=== PATIENT | male | born 1955 | race Caucasian/White ===

== ENCOUNTER 2017-03-16 08:19 | Day surgery (SDC) | payer MEDICAID ==
[2017-03-16] MEDS ORDERED: Propofol 200 MG/20 ML SDV ONE ×2 (08:39→10:47)
[2017-03-16] MEDS ORDERED: fentaNYL 100 MCG/2 ML SDV ONE (08:39)
[2017-03-16] MEDS ORDERED: Midazolam 1 MG/ML 2 ML SDV ONE (08:39)
[2017-03-16] MEDS ORDERED: Lactated Ringers 1,000 ML IV SCH (09:00)
[2017-03-16 12:44] VITALS: BP 145/85
--- NOTE | 2017-03-17 07:34 | OR ---
DATE OF PROCEDURE: 03/16/2017 PREOPERATIVE DIAGNOSIS: Colon cancer screening. POSTOPERATIVE DIAGNOSIS: Diverticulosis, multiple colon polyps. PROCEDURE: Colonoscopy to the cecum with snare cautery polypectomy of polyp at 70 cm. Biopsy resection of polyp at 65 cm, transverse colon, biopsy resection of several polyps in the right colon. SURGEON: Demarcus Harris MD ANESTHESIA: IV anesthesia with monitored anesthesia care. INDICATION: This 61-year-old white male is referred for a colonoscopy for colon cancer screening. He says his last colonoscopic exam was done ten years ago. I counseled him for the procedure including risks and alternatives, and he gave his informed consent to proceed. DESCRIPTION OF PROCEDURE: The patient was placed in the left lateral decubitus position. IV anesthesia was administered by the Anesthesia Service. Time-out was held. A rectal exam was performed, which was unremarkable. The flexible video Olympus colonoscope was introduced through his anus, up his rectum, and out his colon all the way to the cecum. En route, we saw a few scattered left-sided diverticula. En route at 65 cm from anal verge, we saw a polyp that was removed with the biopsy forceps. A larger one at 70 cm was removed with a snare. This involved placing the snare about its base, elevating it up away from the bowel wall, and applying electrocautery as it was amputated. In the transverse colon, another polyp was seen which was removed with the biopsy forceps, and in the right colon , there were several small polyps removed with the biopsy forceps. The scope was withdrawn with no other lesions noted other than the previously mentioned diverticula. The scope was retroflexed in the rectum with the distal rectum appearing unremarkable. The scope was straightened and removed. He tolerated the procedure well. Demarcus Harris MD /[id number]
== END 2017-03-16 12:54 | disposition home or self-care (01) ==
LOC: JP.SDS 08:19
PROVIDERS: ATTEND Surgery
DX: Z12.11 Encounter for screening for malignant neoplasm of colon (principal); D12.2 Benign neoplasm of ascending colon; D12.3 Benign neoplasm of transverse colon; D12.4 Benign neoplasm of descending colon; K57.30 Diverticulosis of large intestine without perforation or abscess without bleeding; G47.33 Obstructive sleep apnea (adult) (pediatric); E78.5 Hyperlipidemia, unspecified; E66.9 Obesity, unspecified; Z79.899 Other long term (current) drug therapy; Z88.0 Allergy status to penicillin
CPT/HCPCS: 45385; 88305; J2250; J2704; J3010; J7120

== ENCOUNTER 2017-04-30 15:15 | Emergency (ER) | payer MEDICAID ==
[2017-04-30 15:31] VITALS: BP 156/83
[2017-04-30] MEDS ORDERED: Cyclobenzaprine 10 MG Tab PO ONE (15:57)
[2017-04-30] MEDS ORDERED: Ketorolac 60 MG/2 ML SDV IM ONE (15:58)
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
[2017-04-30] MEDS ORDERED: HYDROmorphone 0.5 MG/0.5 ML Syringe IM ONE (17:06)
--- NOTE | 2017-05-02 11:11 | CR ---
Lumbar Spine Min 4V HISTORY: Pain COMPARISON: CT scan 07/13/2016. FINDINGS: Gallstones overlying the gallbladder. Moderate diffuse degenerative change of the lumbar s pine with some disc space narrowing and marginal osteophyte formation. No acute fracture or subluxat ion. Impression: Moderate degenerative change no acute fracture.
== END 2017-04-30 17:29 | disposition home or self-care (01) ==
LOC: JP.ED 15:15
DX: M51.86 Other intervertebral disc disorders, lumbar region (principal); H54.7 Unspecified visual loss; E78.00 Pure hypercholesterolemia, unspecified; E66.9 Obesity, unspecified; Z88.8 Allergy status to other drugs, medicaments and biological substances; Z79.899 Other long term (current) drug therapy; H40.9 Unspecified glaucoma; Z68.42 Body mass index [BMI] 45.0-49.9, adult
CPT/HCPCS: 72110; 96372; 99284; A9270; J1885; 99283

== ENCOUNTER 2018-03-31 08:40 | Day surgery (SDC) | payer MEDICAID ==
[2018-03-31] MEDS ORDERED: Lactated Ringers 1,000 ML IV SCH (09:00)
[2018-03-31] MEDS ORDERED: Propofol 200 MG/20 ML SDV ONE (10:33)
[2018-03-31] MEDS ORDERED: fentaNYL 100 MCG/2 ML SDV ONE (10:34)
[2018-03-31 12:48] VITALS: BP 122/74
--- NOTE | 2018-03-31 12:49 | OR ---
DATE OF PROCEDURE: 03/31/2018 PREOPERATIVE DIAGNOSIS: History of tubular and tubulovillous adenomas. POSTOPERATIVE DIAGNOSES: Diverticulosis, medium-size transverse colon polyp, small colon polyp 70 cm from the anal verge, history of tubular and tubulovillous adenomas. PROCEDURES: Colonoscopy to the cecum with biopsy, then snare cautery polypectomy of transverse colon polyp, and biopsy resection of small polyp 70 cm from the anal verge. SURGEON: Demarcus Harris MD. ANESTHESIA: IV anesthesia with monitored anesthesia care. INDICATION: This 62-year-old white male is referred for a colonoscopy because of a history of both tubular and tubulovillous adenomas. His last colonoscopic exam was done about a year ago. I counseled him for the procedure including risks and alternatives, and he gave his informed consent to proceed. DESCRIPTION OF PROCEDURE: The patient was placed in the left lateral decubitus position. IV anesthesia was administered by the Anesthesia Service. Time-out was held. A rectal exam was performed, which was unremarkable. The flexible video Olympus colonoscope was introduced through his anus, up his rectum, and out his colon all the way to the cecum. En route, in the transverse colon, we saw a polyp. We initially biopsied it. It was too large to remove using this technique. We placed a snare about its base, elevated it up away from the bowel wall, and applied electrocautery as the polyp was amputated. It was aspirated through the scope and captured in a polyp trap. Once the cecum was reached, the scope was slowly withdrawn, examining the mucosa throughout. No additional mucosal abnormalities were noted until we reached 70 cm from the anal verge. Here, we saw a small polyp, which was removed with the biopsy forceps. In addition, on the left side, we saw very few scattered diverticula. There was no bleeding or inflammation associated with them. The scope was retroflexed in the rectum with the distal rectum appearing unremarkable. The scope was straightened and removed. He tolerated the procedure well. Demarcus Harris MD /[id number]
== END 2018-03-31 12:48 | disposition home or self-care (01) ==
LOC: JP.SDS 08:40
PROVIDERS: ATTEND Surgery
DX: Z12.11 Encounter for screening for malignant neoplasm of colon (principal); D12.3 Benign neoplasm of transverse colon; K63.5 Polyp of colon; K57.30 Diverticulosis of large intestine without perforation or abscess without bleeding; I10 Essential (primary) hypertension; G47.33 Obstructive sleep apnea (adult) (pediatric); Z86.010 Personal history of colon polyps; Z88.8 Allergy status to other drugs, medicaments and biological substances
CPT/HCPCS: 45380; 45385; J2704; J3010; 88305